=== PATIENT | female | born 1995 | race Two or more races ===

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

== ENCOUNTER 2017-10-17 20:24 | Emergency (ER) | payer MEDICAID ==
[~2017-10-17] VITALS: Ht 170.2 cm; Wt 64.6 kg
[2017-10-17 20:27] VITALS: BP 102/67
== END 2017-10-17 21:19 | disposition home or self-care (01) ==
LOC: ED 21:13
DX: K04.7 Periapical abscess without sinus (principal); J45.909 Unspecified asthma, uncomplicated
CPT/HCPCS: 99283